=== PATIENT | male | born 1935 | race Caucasian/White ===

== ENCOUNTER 2019-06-27 06:51 | Day surgery (SDC) | payer MEDICARE ==
[~2019-06-27 06:51] MED LIST: Acetaminophen TAB* 325 MG PO PRN; Buffered Lidocaine 1% SYRIN* 1 ML/SYRINGE INTRADERM ONE
[2019-06-27] MEDS ORDERED: Midazolam* 1 MG/ML 2 ML VIAL (2 MG) ONE (08:08)
[2019-06-27] MEDS ORDERED: Cyclopentolate 1% OPTH.SOL* 2 ML BTL ONE (09:13)
[2019-06-27] MEDS ORDERED: Phenylephrine OPHTH SOL 2.5%* 2 ML ONE (09:13)
[2019-06-27] MEDS ORDERED: Povidone Iodine 5% OPTH* 30 ML BTL ONE (09:13)
[2019-06-27] MEDS ORDERED: Lidocaine 1% MPF ** 5 ML VIAL ONE (09:13)
[2019-06-27] MEDS ORDERED: Ketorolac 0.5% OPHTH (NF) 0.5 % 5 ML BTL ONE (09:13)
[2019-06-27] MEDS ORDERED: acetaZOLAMIDE TAB* 250 MG ONE (09:13)
[2019-06-27] MEDS ORDERED: Neomycin/Polymy/Dex OPTH.SUSP* MAXITROL 0.1% 5 ML ONE (09:13)
[2019-06-27] MEDS ORDERED: Lidocaine 2% w/ EPI 1:200,000* 20 ML SDV VIAL ONE (09:13)
[2019-06-27] MEDS ORDERED: Proparacaine 0.5% OPHTH.SOL* 15 ML BTL ONE (09:14)
[2019-06-27 09:16] VITALS: BP 143/75
--- NOTE | 2019-06-27 09:45 | OP ---
DATE OF OPERATION: 06/27/19 - [facility] DATE OF : 35 SURGEON: Rick Sandra M.D. PREOPERATIVE DIAGNOSIS: Cataract, right eye. POSTOPERATIVE DIAGNOSIS: Cataract, right eye. OPERATIVE PROCEDURE: Extracapsular cataract extraction with intraocular lens implant, right eye. Indication for complex cataract surgery : Pupil abnormalities requiring pupil dilation device. DESCRIPTION OF PROCEDURE: The patient was brought to the operating room after being given 1/2% Alcaine with epinephrine drops in the preoperative area. The eye was prepped and draped in the usual sterile fashion. Sterile drape and eyelid speculum were placed. Again, topical 1/2% Alcaine with epinephrine was given. A paracentesis incision was made at the 9 o'clock position with the No.75 blade. Clear cornea incision 2.2 x 2.2-mm was created at the 12 o'clock position starting at the anterior limbus using the 2.2-mm keratome. The anterior chamber was irrigated with 0.4 mL of 1% non-preservative intracameral lidocaine and filled with DisCoVisc. A capsulorrhexis was completed using the cystotome and the Utrata forceps. Hydrodissection was performed with balanced salt solution. The lens nucleus was removed with the Phacoemulsification handpiece without incident. Cortex was removed with the irrigation-aspiration handpiece. The capsular bag was re-inflated using DisCoVisc and an [id number] implant was inserted with the shooter. Pupil was very small, so a Malyugin ring was used to dilate the pupil prior to capsulorrhexis. The irrigation- aspiration handpiece was used to remove all residual DisCoVisc. The eye was refilled with balanced salt solution and the wound checked and found to be watertight. Topical Maxitrol drops were given. [id number]/[facility] #: [id number] [facility] CENTERPaulo
== END 2019-06-27 09:10 | disposition home or self-care (01) ==
LOC: OREAST 06:51
PROVIDERS: ATTEND Specialist
DX: H25.811 Combined forms of age-related cataract, right eye (principal); Q13.2 Other congenital malformations of iris; E78.5 Hyperlipidemia, unspecified; I10 Essential (primary) hypertension; N40.0 Benign prostatic hyperplasia without lower urinary tract symptoms; M15.0 Primary generalized (osteo)arthritis
CPT/HCPCS: A9270-GY; J2250; V2632

== ENCOUNTER 2023-12-14 08:57 | Observation (INO) ==
[~2023-12-14 08:57] MED LIST changes: -Acetaminophen TAB* 325 MG PO PRN; -Buffered Lidocaine 1% SYRIN* 1 ML/SYRINGE INTRADERM ONE; +Metoclopramide 5 MG/ML VIAL (10 mg) IV PRN; +Naloxone 0.4 mg VIAL 0.4 mg/ml 1 ml VIAL IV PRN; +Ondansetron 4 mg VIAL 2 MG/ML 2 ml VIAL IV PRN; +fentaNYL 100 mcg/2 ml 50 MCG/ML VIAL IV PRN
[2023-12-14] MEDS ORDERED: Midazolam 2 mg/2 ml VIAL 1 mg/ml 2 ml VIAL (2 mg) ONE (09:30)
[2023-12-14] MEDS: Buffered Lidocaine 1% SYRIN 1 ml INTRADERM ONE (09:41)
[2023-12-14] MEDS ORDERED: cefTRIAXone 2 gm/50 mL D5W 2 GM/50 ML BAG IV ONE (09:45)
[2023-12-14] MEDS ORDERED: Scopolamine 1 mg/72hr PATCH ONE (09:45)
[2023-12-14] MEDS: Lactated Ringers 1000 ml BAG 1,000 ML IV SCH ×2 (10:01→13:56)
[2023-12-14] MEDS: Scopolamine 1 mg/72hr PATCH TRANSDERM ONE (10:01)
[2023-12-14 10:17] LABS: Rapid COVID-19 Molecular Undetected (Undetected)
[2023-12-14] MEDS ORDERED: hydrALAZINE 20 mg/ml 1 ML Vial IV ONE (10:17)
[2023-12-14] MEDS: hydrALAZINE 20 mg/ml 1 ML Vial IV IV SLOW PU ONE (10:23)
[2023-12-14] MEDS ORDERED: Furosemide 20 mg/2 ml IV VIAL ONE (11:33)
[2023-12-14] MEDS: LACTATED RINGERS 1000 ML BAG IV SCH (14:17)
[2023-12-14] MEDS: Furosemide 20 mg/2 ml IV VIAL IV ONE (17:37)
[2023-12-15 05:53] VITALS: BP 161/85
[2023-12-15 06:35] LABS: Calcium 8.4 mg/dL (8.6-10.3); Creatinine, Serum 1.1 mg/dL (0.67-1.17); Potassium 3.9 mmol/L (3.5-5.0)
[2023-12-15] MEDS: cefTRIAXone 1 gm/50 mL D5W 1 GM/50 ML BAG IV ONE (08:34)
== END 2023-12-15 10:25 | disposition home or self-care (01) ==
LOC: SSU 08:57 → OR 08:57
PROVIDERS: ADMIT Urology; ATTEND Urology